=== PATIENT | male | born 2000 | race Caucasian/White ===

== ENCOUNTER 2020-04-24 08:32 | Emergency (ER) | payer OTHER, SELFPAY ==
[2020-04-24 08:45] VITALS: BP 134/69; PULSE 88; RESP 14; TEMP 37.1; O2SAT 100
--- NOTE | 2020-04-24 09:16 | ED.GENADULT ---
HPI - General Adult General Chief complaint: Unspecified Stated complaint: left arm injury Time Seen by Provider: 04/24/20 09:16 Source: patient Mode of arrival: ambulatory Limitations: no limitations History of Present Illness HPI narrative: 20-year-old male patient presents to the [facility] with complaints of left arm pain and some left side pain that started yesterday. Patient states he has been working out recently and has noticed some soreness to the area of the left arm and left side. Patient states he has been taking Tylenol sporadically about 400 mg. Denies any chest pain, shortness of breath. Denies any weakness to the left arm. Denies any swelling Related Data Home Medications Medication Instructions Recorded Confirmed No Home Medications 04/24/20 04/24/20 Allergies Allergy/AdvReac Type Severity Reaction Status Date / Time No Known Allergies Allergy Verified 04/24/20 09:20 Review of Systems Review of Systems: Narrative: CONSTITUTIONAL: Denies fever, chills, or sweats. EYES: Denies visual changes, redness, or discharge. ENT: Denies rhinorrhea, congestion, sore throat, or otalgia. CARDIOVASCULAR: Denies chest pain, palpitations, or edema. RESPIRATORY: Denies cough or dyspnea. GASTROINTESTINAL: Denies abdominal pain, nausea, vomiting, or diarrhea. GENITOURINARY: Denies dysuria or hematuria. SKIN: Denies rash or itching. MUSCULOSKELETAL: Denies back pain, joint pain, or myalgia. Positive left arm pain, left muscular chest pain NEUROLOGIC: Denies headache, numbness, or weakness. PSYCHIATRIC: Denies anxiety or depression. PMFSH Comments At the time of my signature I agree with nursing past medical history, surgical, social, and family history. There is no relevant family history pertinent to the presenting complaint. Exam Narrative: Exam Narrative: GENERAL: Well-appearing, well-nourished, and in no acute distress. HEAD: Normocephalic, atraumatic. EYES: PERRLA and EOMI. ENT: Nares clear, no rhinorrhea or epistaxis. Mucous membranes moist. NECK: Supple. No lymphadenopathy CHEST: Clear to auscultation. No respiratory distress. Slight musculoskeletal pain to the lateral side of the left chest. No rib tenderness. HEART: Regular rate and rhythm. No murmur heard. Normal peripheral pulses. ABDOMEN: Soft, nontender, nondistended, normal active bowel sounds. EXTREMITIES: The L elbow is without obvious asymmetry or deformity when compared to the R elbow. No obvious surface trauma, ecchymosis or soft tissue swelling. No bony tenderness to palpation of the lateral or medial epicondyle, olecranon, or radial head. No epicondylar or axillary lymphadenopathy. Normal flexion, extension, supination, pronation. Normal muscle strength. Intact motor and sensation of ulnar, median, and radial nerves. Patient does have muscle pain along the floor there to the left proximal forearm on the ulnar side. SKIN: Warm, dry, no rash. NEURO: No focal deficits. Alert and oriented x3. Course Vital Signs Vital signs: Vital Signs Temperature 37.1 C 04/24/20 08:45 Pulse Rate 88 04/24/20 08:45 Respiratory Rate 14 04/24/20 08:45 Blood Pressure 134/69 04/24/20 08:45 Pulse Oximetry 100 04/24/20 08:45 Temperature 37.1 C 04/24/20 08:45 Pulse Rate 88 04/24/20 08:45 Respiratory Rate 14 04/24/20 08:45 Blood Pressure 134/69 04/24/20 08:45 Pulse Oximetry 100 04/24/20 08:45 Vital signs reviewed. Medical Decision Making Differential Diagnosis Differential Diagnosis: Differential diagnosis: Elbow strain, subluxed radial head, growth plate fracture,supracondylar fracture, subsequent compartment syndrome, posterior dislocation, anterior dislocation, radial head fracture, anterior fat pad. Discussed with patient that since he is not having any bony pain I do not think that we need an x-ray at this time. Discussed with patient that this most likely is musculoskeletal pain from him working out recently is probably most
== END 2020-04-24 09:29 | disposition home or self-care (01) ==
PROVIDERS: Emergency Provider Nurse Practitioner Family
DX: S46.912A Strain of unspecified muscle, fascia and tendon at shoulder and upper arm level, left arm, initial encounter (principal); X50.0XXA Overexertion from strenuous movement or load, initial encounter
CPT/HCPCS: 99212; G0463

== ENCOUNTER 2021-01-03 17:02 | Emergency (ER) | payer BC, SELFPAY ==
--- NOTE | ~2021-01-03 | XR_ITS ---
EXAMINATION: XR ankle RT min 3V EXAM DATE: 01/03/2021 17:41 INDICATION: Slid off ladder, twisting injury, initial encounter. TECHNIQUE: Right ankle frontal, lateral and oblique projections obtained and reviewed. There is no p rior study for comparison. FINDINGS: The right ankle mortise appears intact. There are no acute fractures or dislocations iden tified. There is no subcutaneous gas. The soft tissue is unremarkable. There are no radiopaque fo reign bodies. IMPRESSION: 1. Right ankle exam without acute osseous findings. Reviewed, dictated and finalized at location A.
[2021-01-03 17:16] VITALS: BP 153/67; PULSE 92; RESP 16; TEMP 37.1; O2SAT 100
--- NOTE | 2021-01-03 17:21 | ED.LOWEXIN ---
HPI - Extremity Injury (Lower) General Chief Complaint: Extremity Injury, Lower Stated Complaint: Extremity Injury, Lower Time Seen by Provider: 01/03/21 17:34 Source: patient and RN notes reviewed Mode of arrival: ambulatory Limitations: no limitations History of Present Illness HPI Narrative: 20-year-old male presents concern for right ankle injury. Reports earlier at work he rolled his ankle sliding off a ladder. Reports pain, swelling in the right lateral and medial aspect of the ankle. Reports it is painful to walk on. Denies any intervention. MD complaint: ankle injury Related Data Home Medications Medication Instructions Recorded Confirmed benzoyl peroxide 1 applic TOPICAL DAILY 01/03/21 01/03/21 clindamycin phos-skin clnsr 19 1 ea TOPICAL DAILY 01/03/21 01/03/21 doxycycline monohydrate 100 mg PO DAILY 01/03/21 01/03/21 tretinoin 1 applic TOPICAL HS 01/03/21 01/03/21 Allergies Allergy/AdvReac Type Severity Reaction Status Date / Time amoxicillin Allergy Hives Verified 01/03/21 17:33 Penicillins Allergy Hives Verified 01/03/21 17:33 Review of Systems Review of Systems: Narrative: CONSTITUTIONAL: Denies malaise, chills, sweats, or fever. CARDIOVASCULAR: Denies chest pain, palpitations, or edema. RESPIRATORY: Denies cough or dyspnea. SKIN: Denies abrasion, laceration MUSCULOSKELETAL: Reports right ankle pain, swelling NEUROLOGIC: Denies numbness, weakness All systems reviewed & are unremarkable except as noted in HPI and below PMFSH Comments At time of signature, agree with nursing past medical, surgical, social and family history. There is no relevant family history pertinent to the presenting complaint Exam Narrative: Exam Narrative: GENERAL: Well-appearing, well-nourished, and in no acute distress. HEAD: Normocephalic, atraumatic. EYES: PERRLA, conjunctivae clear NECK: Supple. CHEST: Speaks in full sentences. No respiratory distress. HEART: Regular rate and rhythm. Normal and equal peripheral pulses. EXTREMITIES: Right ankle, foot, digits have normal strength and sensation, normal range of motion. Mild medial edema, very minimal ecchymosis. 5/5 strength with ankle, digit flexion and extension. Normal sensation with sensitivity to light touch and pain. Medial and lateral tenderness. No open wounds, no skin tenting, no devitalized tissue or atrophy, no trophic changes, no obvious deformity, alignment normal, nearby joints and structures intact. Distal pulses palpable and equal bilaterally, skin warm, dry, pink. Capillary refill less than 3 seconds. SKIN: Warm, dry, no rash. NEURO: Alert and oriented x3. PSYCH: Normal mood and affect Course Course Emergency Course: Patient is aware of diagnosis, understands and agrees to treatment plan. Anticipatory guidance given. Patient agrees to follow-up as directed and is aware of reasons to seek care at the emergency department. Portions of this record may have been created with voice recognition software Vital Signs Vital signs: Reviewed. MDM - Extremity Injury (Lower) MDM Narrative Medical decision making narrative: Patients injury and pain is consistent with musculoskeletal etiology. No signs of neurological or vascular compromise on exam. Compartments and tissues are soft without signs of compartment syndrome. Pain is felt appropriate for further evaluation on an outpatient basis. Imaging Data My impression: Images reviewed, interpreted by radiologist, agree, see report. Radiologist's impression: EXAMINATION: XR ankle RT min 3V EXAM DATE: 01/03/2021 17:41 INDICATION: Slid off ladder, twisting injury, initial encounter. TECHNIQUE: Right ankle frontal, lateral and oblique projections obtained and reviewed. There is no prior study for comparison. FINDINGS: The right ankle mortise appears intact. There are no acute fractures or dislocations identified. There is no subcutaneous gas. The soft tissue is unremarkable. There are no radiopaque foreign tip
[2021-01-03 17:37] VITALS: BP 153/67; PULSE 92; RESP 16; TEMP 37.1; O2SAT 100
== END 2021-01-03 18:04 | disposition home or self-care (01) ==
PROVIDERS: Emergency Provider Nurse Practitioner; PCP Physician Assistant
DX: S93.401A Sprain of unspecified ligament of right ankle, initial encounter (principal); S96.911A Strain of unspecified muscle and tendon at ankle and foot level, right foot, initial encounter; X50.9XXA Other and unspecified overexertion or strenuous movements or postures, initial encounter; Y99.0 Civilian activity done for income or pay
CPT/HCPCS: 73610; 99213; G0463

== ENCOUNTER 2025-01-02 12:36 | Emergency (ER) | payer BC, SELFPAY ==
--- NOTE | ~2025-01-02 | XR_ITS ---
Clinical Indication: Chest pain, shortness of breath PA and lateral views of the chest: Comparison: None Findings: The lungs are clear, without evidence of focal consolidation or pleural effusion. Cardiome diastinal silhouette is within normal limits. Bones and soft tissues are unremarkable. Impression: Normal chest. Reviewed, dictated and finalized at location . Impression: Normal chest.
[2025-01-02 12:41] VITALS: BP 152/99; PULSE 77; RESP 20; TEMP 36.6; O2SAT 100
[2025-01-02 12:47] VITALS: BP 160/94
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
--- NOTE | 2025-01-02 12:58 | ECG_ITS ---
Test Date: 2025-01-02 13:09:29 Measurements Intervals [place] Rate: 60 P: 51 NH: 148 QRS: 38 QRSD: 90 T: 29 QT: 381 QTc: 381 Interpretive Statements SINUS RHYTHM No previous ECG available for comparison Electronically Signed On 01-02-2025 18:37:13 CDT by Gabriela Bunn M.D.
== END 2025-01-02 13:24 | disposition home or self-care (01) ==
PROVIDERS: Emergency Provider Nurse Practitioner Family; PCP Physician Assistant
DX: R07.9 Chest pain, unspecified (principal); Z56.3 Stressful work schedule; R03.0 Elevated blood-pressure reading, without diagnosis of hypertension
CPT/HCPCS: 71046; 93005; 99213; G0463